=== PATIENT | male | born 1970 | race Caucasian/White ===

== ENCOUNTER → 2022-10-31 | Outpatient (CLI) | payer OTHER ==
[2022-10-31 11:01] LABS: Amphetamine Screen, Urine NEGATIVE (NEGATIVE); Barbiturate Scree,Urine NEGATIVE (NEGATIVE); Benzodiazephine Screen, Urine NEGATIVE (NEGATIVE); Cannabinoid Screen, Urine NEGATIVE (NEGATIVE); Cocaine Screen, Urine NEGATIVE (NEGATIVE); Opiate Scree,Urine NEGATIVE (NEGATIVE); Phencyclidine Screen, Urine NEGATIVE (NEGATIVE)
== END | disposition home or self-care (01) ==
LOC: LAB 09:11
PROVIDERS: ATTEND Psychiatry & Neurology Neurology
DX: F11.220 Opioid dependence with intoxication, uncomplicated (principal); M54.40 Lumbago with sciatica, unspecified side
CPT/HCPCS: 80307

== ENCOUNTER → 2024-03-04 | Outpatient (CLI) | payer OTHER ==
[2024-03-04 13:34] LABS: Amphetamine Screen, Urine Neg (NEGATIVE)
[2024-03-04 13:36] LABS: Barbiturate Scree,Urine Neg (NEGATIVE); Benzodiazephine Screen, Urine Neg (NEGATIVE); Cocaine Screen, Urine Neg (NEGATIVE); Opiate Scree,Urine Neg (NEGATIVE); Phencyclidine Screen, Urine Neg (NEGATIVE)
[2024-03-04 13:37] LABS: Cannabinoid Screen, Urine Neg (NEGATIVE)
== END | disposition home or self-care (01) ==
LOC: LAB 11:58
PROVIDERS: ATTEND Psychiatry & Neurology Neurology
DX: M54.40 Lumbago with sciatica, unspecified side (principal); M65.4 Radial styloid tenosynovitis [de Quervain]
CPT/HCPCS: 80307